=== PATIENT | female | born 1975 | race Caucasian/White ===

== ENCOUNTER 2017-02-05 14:25 | Emergency (ER) | payer MEDICAID ==
[~2017-02-05] VITALS: Ht 157.5 cm; Wt 71.5 kg
[~2017-02-05 14:25] MED LIST: FER325 PO; IBUP800T25 PO; OMEP20CA9 PO; PERCOCET PO; PREN-43 PO; PRENAT PO; RANI150T9 PO; SODI44SP11 NS
[2017-02-05 14:29] VITALS: Ht 157.5 cm; Wt 71.5 kg
[2017-02-05] MEDS ORDERED: ACETAMINOPHEN 500 MG TAB PO STA (14:57)
--- NOTE | 2017-02-05 15:06 | ERD ---
ER Documentation Chief Complaint Date/Time DATE: 02/05/17 TIME: 15:02 Chief Complaint Complains of right eye pain and redness x 2 days HPI This is a 41-year-old female who presents emergency department today complaining of right eye pain and redness for the past 3 days. States that she got really mad and felt something burst in her eye. Denies any trauma, fevers, blurred vision. States she does have some light sensitivity. States she does have some pain in her eye around it. States it initially started as a small area of redness and now is bigger. ROS All systems reviewed and are negative except as per history of present illness. Medications Home Meds Active Scripts Acetaminophen* (Tylophen*) 500 Mg Capsule, 1 CAP PO Q6H Y for PAIN AND OR ELEVATED TEMP, #30 CAP Prov:JASSON BUTT PA-C 02/05/17 Omeprazole* (Prilosec*) 20 Mg Capsule.dr, 20 MG PO DAILY, #30 CAP Prov:ELA LINDSAY PA-C 08/16/15 Ranitidine Hcl* (Zantac*) 150 Mg Tablet, 150 MG PO BID Y for PAIN, #30 TAB Prov:ELA LINDSAY PA-C 08/16/15 Oxycodone Hcl/Acetaminophen (Percocet) 1 Tab Tab, 2 TAB PO Q4H Y for PAIN LEVEL 6-10, #30 TAB 0 Refills Prov:OMID POLLARD MD 03/16/15 Ibuprofen* (Ibuprofen*) 800 Mg Tab, 800 MG PO Q8, #20 0 Refills Prov:OMID POLLARD MD 03/16/15 Sodium Chloride (Saline Nasal [place]) 45 Ml [place], 2 SPR NS Q2H Y for na, #1 BOT Prov:BETTY WEN NP 01/11/15 Reported Medications Ferrous Sulfate* (Ferrous Sulfate*) 325 Mg Tabec, 325 MG PO DAILY, TAB 03/14/15 Multivit/Min/Fol Ac/Iron/Pren* ( S*) 1 Tab Tab, 1 TAB PO, TAB 03/14/15 #48/Iron Cb&Glu/Fa/B6 (CITRANATAL B-CALM COMBO PACK) 1 Each Tablet.seq , 1 EACH PO 05/18/13 Allergies Allergies: Coded Allergies: No Known Allergy (Verified , 05/22/08) PMhx/Soc History of Surgery: Yes (c/section x3) Anesthesia Reaction: No Hx Neurological Disorder: No Hx Respiratory Disorders: No Hx Cardiac Disorders: No Hx Psychiatric Problems: No Hx Miscellaneous Medical Probl: Yes (gastritis) Hx Alcohol Use: No Hx Substance Use: No Hx Tobacco Use: No Physical Exam Vitals Vital Signs Date Time Temp Pulse Resp B/P Pulse Ox O2 Delivery O2 Flow Rate FiO2 02/05/17 14:29 98.6 70 20 113/71 96 Physical Exam Const: pleasant, NAD Head: Atraumatic Eyes: Normal Conjunctiva. PERRLA, EOM ENT: Normal External Ears, Nose and Mouth. Neck: Full range of motion..~ No meningismus. Resp: Clear to auscultation bilaterally Cardio: Regular rate and rhythm, no murmurs Abd: Soft, non tender, non distended. Normal bowel sounds Skin: No petechiae or rashes Neur: Awake and alert Psych: Normal Mood and Affect Results 24 hrs Current Medications Medications (Trade) Dose Ordered Sig/Omar Route PRN Reason Start Time Stop Time Status Last Admin Dose Admin Acetaminophen (Tylenol Tab) 500 mg ONCE STAT PO 02/05/17 14:57 02/05/17 15:01 DC 02/05/17 15:07 DIAGNOSTIC IMAGING REPORT Patient: FRANCE PENA : 1975 Age: 41 Sex: F MR #: [id number] DOS: 02/05/17 0000 Ordering MD: JASSON BUTT PA-C Location: [facility] Room/Bed: PROCEDURE: US orbits. CLINICAL INDICATION: Right eye redness and pain. TECHNIQUE: Ultrasound of the orbits was performed utilizing a high frequency linear transducer. COMPARISON: None available. FINDINGS: Both globes are normal with no evidence of retinal detachment. The anterior chamber, posterior chamber, lens, and vitreous are normal in appearance bilaterally. IMPRESSION: 1. Unremarkable bilateral ultrasound of the orbits. No sonographic evidence of renal detachment. RPTAT: HLBP .Buzz Bazan MD, MD Date Time Electronically viewed and signed by .Buzz Bazan MD, MD on 02/05/2017 16:59 .P/ CC: JASSON BUTT PA-C Procedures/[facility] This 41-year-old female presents emergency department today complaining of right eye pain and redness for the past 3 days. On physical exam patient appears to have subconjunctival hemorrhage that is fairly diffuse in nature. It does not cross into the cornea or iris or pupil. Visual acuity Right eye 20/30 Ieft eye 20/30 bilateral 20/30 Given the patient's diffuse nature of the redness I did obtain an ultrasound. US is unremarkable bilateral ultrasound of the orbits. The anterior chamber, posterior chamber lens and vitreous are all normal appearance bilaterally. There is no evidence of retinal detachment. Patient is afebrile and otherwise well-appearing. She denied any trauma. I have low suspicion for conjunctivitis, globe rupture, hyphema, . Pupils are equal round and reactive to light and accommodation and I have low suspicion for acute narrow angle glaucoma. Denies any vision loss. Her blood pressure is within normal limits at 113/71. Do not feel that she requires a head CT scan at this time. She was given Tylenol here in the emergency and states pain improved. She was given a prescription for Tylenol for home. At this time the patient is stable for discharge and outpatient management. Patient should follow up with their PCP in the next 1-2 days. Given a list of referral for [facility]. They may return to the emergency department sooner for any persistent or worsening of symptoms. Patient understood and agreed with the plan. Departure Diagnosis: Primary Impression: Eye problem Condition: Fair JASSON BUTT PA-C Feb 05, 2017 15:06
--- NOTE | 2017-02-05 17:00 | RADRPT ---
PROCEDURE: US orbits. CLINICAL INDICATION: Right eye redness and pain. TECHNIQUE: Ultrasound of the orbits was performed utilizing a high frequency linear transducer. COMPARISON: None available. FINDINGS: Both globes are normal with no evidence of retinal detachment. The anterior chamber, posterior chamb er, lens, and vitreous are normal in appearance bilaterally. IMPRESSION: 1. Unremarkable bilateral ultrasound of the orbits. No sonographic evidence of renal detachment. RPTAT: HLBP .Buzz Bazan MD, Date Time Electronically viewed and signed by .Buzz Bazan MD, on 02/05/2017 16:59 .P/
[2017-02-05] MEDS ORDERED: ACET500C5 PO (17:06)
[2017-02-05 17:13] VITALS: BP 122/87; PULSE 79; RESP 20; TEMP 98.5
== END 2017-02-05 17:18 | disposition home or self-care (01) ==
LOC: FTE 14:25
DX: H57.11 Ocular pain, right eye (principal); H57.8 Other specified disorders of eye and adnexa
CPT/HCPCS: 76536; Z7502; Z7610

== ENCOUNTER 2018-02-01 18:33 | Emergency (ER) | END 2018-02-01 22:20 | disposition home or self-care (01) ==